=== PATIENT | female | born 1985 | race Two or more races ===

== ENCOUNTER 2017-04-14 20:16 | Emergency (ER) | payer OTHER ==
[~2017-04-14] VITALS: Ht 162.6 cm; Wt 75.7 kg
[2017-04-14 20:35] VITALS: BP 125/77
[2017-04-14] MEDS ORDERED: ACETAMINOPHEN 325 MG TABLET PO ONE (21:30)
[2017-04-14] MEDS ORDERED: ACETAMINOPHEN 325 MG TABLET ONE (21:49)
== END 2017-04-14 21:55 | disposition home or self-care (01) ==
LOC: ER 20:18
DX: R05 Cough (principal); R07.81 Pleurodynia
CPT/HCPCS: 71010; 99283; A4606; Z7610

== ENCOUNTER 2017-04-16 10:49 | Emergency (ER) | payer OTHER ==
[~2017-04-16] VITALS: Ht 162.6 cm; Wt 75.7 kg
[2017-04-16 11:51] VITALS: BP 121/79
[2017-04-16] MEDS ORDERED: ACETAMINOPHEN ES 500 MG TABLET PO ONE (12:30)
[2017-04-16] MEDS ORDERED: IBUPROFEN 600 MG TABLET PO ONE ×2 (12:30→12:33)
[2017-04-16] MEDS ORDERED: ACETAMINOPHEN ES 500 MG TABLET ONE (12:32)
== END 2017-04-16 12:36 | disposition home or self-care (01) ==
LOC: ER 10:50
DX: R05 Cough (principal); R09.81 Nasal congestion; R50.9 Fever, unspecified
CPT/HCPCS: 99283; A4606; Z7610

== ENCOUNTER 2018-01-27 19:08 | Emergency (ER) | payer OTHER ==
[~2018-01-27] VITALS: Ht 162.6 cm; Wt 71.7 kg
--- NOTE | 2018-01-27 20:10 | NUR ---
pt c/o lower pelvic pain radiating to back w/ vaginal spotting bright red blood. AOx4, afebrile w/ resp even & unlabored, VSS w/ mild discomfort noted. Urine obtained & sent to lab, pending further britt juarez MD.
--- NOTE | 2018-01-27 20:24 | NUR ---
MANAGER ACCOUNT MANAGEMENT AT BEDSIDE FOR BLOOD DRAW.
[2018-01-27 20:29] LABS: BASOPHILS # (AUTO) 0.3 /CMM (0.0-0.2); BASOPHILS % (AUTO) 1.4 % (0.0-2.0); EOSINOPHILS % (AUTO) 0.5 % (0.0-6.0); HEMATOCRIT 38 % (33-45); HEMOGLOBIN 12.9 g/dL (11.5-14.8); LYMPHOCYTES # (AUTO) 3.2 /CMM (0.8-4.8); LYMPHOCYTES % (AUTO) 15.7 % (20.0-44.0); MEAN CORPUSCULAR HGB CONC 34 g/dl (31.0-36.0); MEAN CORPUSCULAR VOLUME 87 fL (82-100); MONOCYTES # (AUTO) 1.4 /CMM (0.1-1.30); MONOCYTES % (AUTO) 6.8 % (2.0-12.0); NEUTROPHILS # (AUTO) 15.1 /CMM (1.8-8.9); NEUTROPHILS % (AUTO) 75.6 % (43.0-81.0); PLATELET COUNT (AUTO) 354 /CMM (150-450); RDW COEFFICIENT OF VARIATION 12.6 (11.5-15.0); WHITE BLOOD COUNT (AUTO) 20.1 K/uL (4.3-11.0)
[2018-01-27 20:37] LABS: CALCIUM, SERUM 9.3 mg/dL (8.5-10.1); CREATININE 0.9 mg/dL (0.6-1.3); POTASSIUM 2.9 mmol/L (3.5-5.1)
[2018-01-27] MEDS ORDERED: KETOROLAC TROMETHAMINE INJ 30 MG/ML VIAL ONE (20:47)
[2018-01-27] MEDS: IV NS 0.9% 1,000 ML BAG IV ONE (20:49)
[2018-01-27] MEDS: KETOROLAC TROMETHAMINE INJ 30 MG/ML VIAL IV ONE (20:50)
--- NOTE | 2018-01-27 20:56 | NUR ---
URINE COLLECTED. CALLED LAB FOR SOCIAL INSURANCE ADVISER.
--- NOTE | 2018-01-27 21:10 | NUR ---
US TECH AT BEDSIDE.
[2018-01-27 21:14] LABS: APPEARANCE,URINE Cloudy (CLEAR); BILIRUBIN,URINE Negative (NEGATIVE); BLOOD, URINE Large Ery/uL (NEGATIVE); COLOR,URINE Yellow (YELLOW); KETONES,URINE Negative (NEGATIVE); LEUKOCYTE ESTERASE ,URINE Large (NEGATIVE); NITRITE, URINE Negative (NEGATIVE); PROTEIN,URINE 100 mg/dl (NEGATIVE); UGLUCOSE Negative (NEGATIVE); UROBILINOGEN,URINE 0.2 EU/dL (0.2)
[2018-01-27] MEDS ORDERED: CEFTRIAXONE 1 G VIAL ONE (21:28)
[2018-01-27] MEDS ORDERED: POTASSIUM CHLORIDE 20 MEQ TAB.PRT.SR PO ONE (21:29)
[2018-01-27 21:32] LABS: BACTERIA,URINE Few /HPF (None Seen); RBC,URINE 81-100 /HPF (0-2); SQUAMOUS EPITHELIAL CELL,UR Few /HPF (None Seen); WBC,URINE 81-100 /HPF (0-3)
[2018-01-27] MEDS: POTASSIUM CHLORIDE 20 MEQ TAB.PRT.SR PO ONE (21:36)
[2018-01-27] MEDS: CEFTRIAXONE 1GM BAG (ER ONLY) 1 GM/50 ML PIGGYBACK IV ONE (21:37)
--- NOTE | 2018-01-27 21:54 | NUR ---
IV removed. Catheter intact and site benign. Pressure and 4x4 applied to site. No bleeding noted.Patient discharged to home in stable condition. Written and verbal after care instructions given. Patient verbalizes understanding of instruction.
[2018-01-27 22:05] VITALS: BP 138/86
== END 2018-01-27 21:54 | disposition home or self-care (01) ==
LOC: ER 19:13
DX: N39.0 Urinary tract infection, site not specified (principal); E87.6 Hypokalemia
CPT/HCPCS: 36415; 76856; 80048; 81001; 84703; 85025; 87086; 96365; 96375; 99285; A4216; J0696; J1885; J7030 ×2; 81000-TC

== ENCOUNTER 2018-03-29 21:52 | Emergency (ER) | payer OTHER ==
[~2018-03-29] VITALS: Ht 162.6 cm; Wt 72.6 kg
--- NOTE | 2018-03-29 22:03 | NUR ---
BIB SELF. COMPLAINTS OF FEVER 101 X YESTERDAY W/ LT UPPER BACK PAIN X 2 MOS, WORSE WHEN COUGHING. A/OX 4, RESP EVEN UNLABORED, NAD NOTED, VSS. PATIENT ON MONITOR. PENDING MD ATKINSON
--- NOTE | 2018-03-29 23:08 | NUR ---
FLU SWAB COLLECTED AND SENT TO LAB
[2018-03-30 00:35] VITALS: BP 136/80
--- NOTE | 2018-03-30 00:36 | NUR ---
Patient discharged to home in stable condition. Written and verbal after care instructions given. Patient verbalizes understanding of instruction. Ambulatory with a steady gait.
== END 2018-03-30 00:41 | disposition home or self-care (01) ==
LOC: ER 21:59
DX: J06.9 Acute upper respiratory infection, unspecified (principal)
CPT/HCPCS: 71045-TC; 87400; A4606; Z7610

== ENCOUNTER 2020-12-08 15:05 | Emergency (ER) | payer MEDICAID, OTHER ==
[~2020-12-08] VITALS: Ht 162.6 cm; Wt 76.7 kg
--- NOTE | 2020-12-08 15:21 | NUR ---
TO ER BED 4, C/O L SIDED CHEST AND BACK PAIN FOR 3 WEEKS, A&OX4.
--- NOTE | 2020-12-08 15:56 | NUR ---
URINE COLLECTED AND SENT TO LAB
[2020-12-08 16:52] LABS: BASOPHILS # (AUTO) 0.1 K/uL (0.0-0.2); BASOPHILS % (AUTO) 0.8 % (0.0-2.0); EOSINOPHILS % (AUTO) 1.5 % (0.0-6.0); HEMATOCRIT 38 % (33-45); HEMOGLOBIN 12.9 g/dL (11.5-14.8); LYMPHOCYTES # (AUTO) 2.8 K/uL (0.8-4.8); LYMPHOCYTES % (AUTO) 40.3 % (20.0-44.0); MEAN CORPUSCULAR HGB CONC 34 g/dl (31.0-36.0); MEAN CORPUSCULAR VOLUME 87 fL (82-100); MONOCYTES # (AUTO) 0.5 K/uL (0.1-1.30); MONOCYTES % (AUTO) 7.1 % (2.0-12.0); NEUTROPHILS # (AUTO) 3.5 K/uL (1.8-8.9); NEUTROPHILS % (AUTO) 50.3 % (43.0-81.0); PLATELET COUNT (AUTO) 340 K/uL (150-450); RED BLOOD CELL COUNT(AUTO) 4.41 MIL/uL (4.0-5.2)
[2020-12-08 17:00] LABS: CALCIUM, SERUM 8.6 mg/dL (8.5-10.1); CARBON DIOXIDE 27 mmol/L (21-32); CHLORIDE 107 mmol/L (98-107); CREATININE 0.9 mg/dL (0.6-1.3); GLUCOSE 102 mg/dL (74-106); POTASSIUM 3.8 mmol/L (3.5-5.1); SODIUM SERUM 141 mmol/L (136-145); UREA NITROGEN, BLOOD 11 mg/dL (7-18)
[2020-12-08 17:04] LABS: ALANINE AMINOTRANSFERASE 26 U/L (12-78); ALBUMIN 3.9 g/dL (3.4-5.0); ALKALINE PHOSPHATASE 54 U/L (46-116); BILIRUBIN,TOTAL 0.6 mg/dL (0.2-1.0); LIPASE 188 U/L (73-393); TOTAL PROTEIN, SERUM 7.6 g/dL (6.4-8.2)
[2020-12-08 17:24] LABS: ASPARTATE AMINOTRANSFERASE 16 U/L (15-37)
[2020-12-08] MEDS ORDERED: IBUP-1955 PO (18:39)
[2020-12-08 18:50] VITALS: BP 128/79
[2020-12-08] MEDS ORDERED: IBUPROFEN 600 MG TABLET PO ONE (19:00)
== END 2020-12-08 18:50 | disposition home or self-care (01) ==
LOC: ER 15:08
DX: R07.89 Other chest pain (principal)
CPT/HCPCS: 36415; 71045-TC; 80053-TC; 83690-TC; 84484-TC; 84703-TC; 85025-TC